=== PATIENT | male | born 1970 | race Hispanic/Latino ===

== ENCOUNTER 2018-08-31 17:29 | Emergency (ER) | payer SELFPAY ==
[~2018-08-31] VITALS: Ht 170.2 cm; Wt 75.9 kg
[~2018-08-31 17:29] MED LIST: ULTRAM50 M1 PO
[2018-08-31 19:34] VITALS: BP 125/83
== END 2018-08-31 19:34 | disposition home or self-care (01) | DRG 159 ==
LOC: ED 17:29
DX: K08.89 Other specified disorders of teeth and supporting structures (principal); F17.210 Nicotine dependence, cigarettes, uncomplicated

== ENCOUNTER 2024-09-11 15:13 | Emergency (ER) | payer SELFPAY ==
[~2024-09-11] VITALS: Ht 170.2 cm; Wt 79.0 kg
[2024-09-11] MEDS ORDERED: SODIUM CHLORIDE 0.9% 1,000 ML IV ONE ×2 (15:35)
[2024-09-11 15:55] LABS: BASO% 0.3 % (0-3); EOS% 5.8 % (0-8); HEMATOCRIT 44.9 % (39.0-50.0); HEMOGLOBIN 15.5 g/dl (14.0-18.0); IMMATURE GRANULOCYTES 0.5 % (0.0-5.0); LYMPH% 38.5 % (15-41); MEAN CELL VOLUME 100.9 fL CALC (80.0-100.0); MEAN CORPUSCULAR HGB 34.8 pG CALC (26.0-32.0); MEAN CORPUSCULAR HGB CONC 34.5 g/dL CAL (32.0-36.0); MONO% 6.3 % (2-13); NEUT# 4.29 thou/uL (1.82-7.42); NEUT% 48.6 % (42-76); RED BLOOD COUNT 4.45 mill/uL (4.70-6.10); RED CELL DISTRI WIDTH 12.9 % (11.5-15.5)
[2024-09-11 16:03] LABS: ALBUMIN 4.6 g/dL (3.2-5.0); ALKALINE PHOSPHATASE 57 u/l (38-126); ANION GAP 16 (6-22 (CALC)); BUN 18 mg/dL (9-20); BUN/CREATININE RATIO 16 (12-20 (CALC)); CARBON DIOXIDE 22 mmol/l (22-30); CHLORIDE 108 mmol/l (95-108); CREATININE 1.1 mg/dL (0.7-1.3); ESTIMATED GFR 79 ML/MIN (>=90 (CALC)); LIPASE 363 u/l (23-300); POTASSIUM 4.9 mmol/l (3.5-5.1); SGOT/AST 40 u/l (17-59); SODIUM 140 mmol/l (137-146); TOTAL PROTEIN 7.8 g/dL (6.3-8.2)
[2024-09-11 16:08] LABS: BILIRUBIN, TOTAL 0.9 mg/dL (0.2-1.3)
[2024-09-11 16:59] LABS: URINE BILIRUBIN - DIPSTICK Negative (NEGATIVE); URINE BLOOD DIPSTICK Negative (NEGATIVE); URINE GLUCOSE - DIPSTICK Negative (NEGATIVE); URINE KETONE Trace mg/dL (NEGATIVE); URINE LEUK ESTERASE Negative (NEGATIVE); URINE NITRITE - DIPSTICK Negative (Negative); URINE PROTEIN - DIPSTICK Negative (NEG-TRACE); URINE SPECIFIC GRAVITY 1.025; URINE UROBILINOGEN - DIPSTICK 0.2 E.U./dL (0.2)
[2024-09-11 17:00] LABS: URINE COLOR Yellow
[2024-09-11] MEDS ORDERED: KETOROLAC TROMETHAMINE 30 MG/ML SDV IV ONE (17:05)
[2024-09-11 17:24] VITALS: BP 122/70
[2024-09-11 17:31] VITALS: BP 123/84
[2024-09-11] MEDS ORDERED: AZITHROMYCIN500 MG PO (17:46)
[2024-09-11 17:49] VITALS: BP 123/84
== END 2024-09-11 17:51 | disposition home or self-care (01) | DRG 203 ==
LOC: ED 15:13
PROVIDERS: Clinical Nurse Specialist Emergency
DX: J20.9 Acute bronchitis, unspecified (principal)
CPT/HCPCS: Q9967